=== PATIENT | female | born 1990 | race Caucasian/White ===

== ENCOUNTER 2020-06-07 19:26 | Emergency (ER) | payer BC ==
[2020-06-07] MEDS ORDERED: Alum Hydrox/Mag Hydrox/Simeth 15 ML, Lidocaine 2% 5 ML PO ONE ×2 (19:46)
[2020-06-07] MEDS ORDERED: Famotidine 20 MG Tab PO ONE (19:46)
[2020-06-07 20:05] LABS: BLOOD UREA NITROGEN,BUN 13 mg/dL (7.0-18.0); CARBON DIOXIDE,CO2 25.2 mmol/L (21.0-32.0); CHLORIDE,CL 102 mmol/L (98-107); GLUCOSE RANDOM 96 mg/dL (74-106); POTASSIUM,K 3.3 mmol/L (3.5-5.1); SODIUM,NA 138 mmol/L (136-145)
[2020-06-07] MEDS ORDERED: Potassium Chloride 10% 20 MEQ/15 ML Soln 30 ML UD Cup PO ONE (20:30)
--- NOTE | 2020-06-07 21:09 | CR ---
Indication: Chest pain. Technique: AP portable view of the chest. Comparison: None Findings: The heart is normal in size. The lungs are clear. No infiltrate, pleural effusion, or pneumothorax is identified. Impression: No acute cardiopulmonary process. Dictated by Sydnie Nicholson MD @ Jun 07 2020 9:07PM Signed by Dr. Sydnie Nicholson @ Jun 07 2020 9:09PM
--- NOTE | 2020-06-07 21:33 | EDM.PDOC ---
ED HPI GENERAL MEDICAL PROBLEM - General Chief Complaint: Chest Pain Stated Complaint: CHEST PAIN Time Seen by Provider: 06/07/20 19:30 - History of Present Illness INITIAL COMMENTS - FREE TEXT/NARRATIVE: CHIEF COMPLAINT(S): Chest pain HISTORY OF PRESENT ILLNESS: This is a 29-year-old woman without any significant past medical history who comes to the emergency department with a chief complaint of chest pain. The patient states that for approximately 2 days now she has been experiencing chest pain which she describes as cramping rated 5 out of 10 and intermittent located in the center of her chest. She states that she does feel some nausea with cramping but denies any diaphoresis, shortness of breath, vomiting. She denies any burning in her throat but states that she does feel some pain in her upper abdomen also. She states that she took Tums, Rolaids, and Pepto-Bismol thinking that it might be reflux but it did not seem to help. She states that this pain happens every 2 hours. She denies any aggravating or relieving factors. She states that she was in [place] when it got worse and then got better. She denies any Covid exposures denies any cough, history of CAD or CHF. She denies any history of DVT or PE. She denies any long distance travel or recent surgery. REVIEW OF SYSTEMS: Constitutional: Denies fever, chills. Eyes: Denies eye pain Ears, Nose, Mouth, & Throat: Denies earache Cardiovascular: Positive for chest pain Respiratory: Denies shortness of breath Gastrointestinal: Positive for nausea. Denies vomiting, diarrhea, hematochezia, hematemesis, bilious emesis Genitourinary: Denies hematuria Skin:Denies a rash MSK: Denies joint pain Neurological: Denies blurred vision, numbness, tingling, weakness Psychiatric: Denies depression PAST MEDICAL HISTORY: As per history of present illness and as reviewed below otherwise noncontributory. SURGICAL HISTORY: As per history of present illness and as reviewed below otherwise noncontributory. SOCIAL HISTORY: As per history of present illness and as reviewed below otherwise noncontributory. FAMILY HISTORY: As per history of present illness and as reviewed below otherwise noncontributory. EXAMINATION OF ORGAN SYSTEMS/BODY AREAS: Constitutional: Blood pressure is 146/99, heart rate 124, respiratory rate 20 with an oxygen saturation 96% on room air. Temperature 36.6 General: Anxious appearing woman otherwise no acute distress Psychiatric: Anxious appearing but cooperative Eyes: No scleral icterus or conjunctival erythema ENMT: Moist mucous membranes. No pharyngeal erythema Cardiovascular: Regular, rate, and rhythm. No gallops, murmurs, or rubs. Bilateral upper extremity pulses symmetric and intact. No peripheral edema. No JVD. Respiratory: Lungs clear to auscultation bilaterally. No wheezes, rales, or rhonchi. Gastrointestinal: Soft, non-tender, non-distended. Normoactive bowel sounds Genitourinary: No suprapubic tenderness Musculoskeletal: Normal range of motion. Skin: No lesions or abrasions. Neurological: Alert, GCS 15 MEDICAL DECISION MAKING AND COURSE IN THE ED WITH INTERPRETATION/REVIEW OF DIAGNOSTIC STUDIES: This is a 29-year-old woman without any significant past medical history who comes to the emergency department with subacute chest pain which is atypical. We did obtain an EKG which did not reveal any acute signs of ischemia. Will obtain a cardiac work-up. In addition we will obtain a D-dimer to evaluate for PE although the patient is low risk. We will only need 1 troponin given the duration of symptoms. Will obtain a chest x-ray. We will treat the patient symptomatically for possible reflux disease including GI cocktail and famotidine. I did perform a bedside cardiac ultrasound Bedside cardiac ultrasound Cardiac ultrasound reveals no evidence of pericardial effusion, ejection fraction appeared normal, no signs of right heart strain. No obvious wall motion abnormalities Time: 1929 Twelve-lead EKG interpreted by myself. Normal sinus rhythm at a rate of 94beats per minute. Normal axis. MT interval is 118ms. QRS duration is 93ms. ST segments are normal without elevations or depressions. No T wave inversions no Q waves present. Hypertrophy not noted. No prior EKGs in our system. Interpretation: Normal sinus rhythm Laboratory: CBC is unremarkable. D-dimer is negative. CMP reveals hypokalemia at 3.3 otherwise unremarkable. Troponin is negative. hCG is negative. Heart Score History: Slightly or Non-Suspicious (0) ECG: Normal (0) Age: <45 (0) Risk Factors: No known risk factors (0) Initial Troponin: </= normal limit (0) Total Score: 0 The radiological images were viewed by myself along with reading the report from the radiologist. Chest x-ray does not reveal any acute cardiopulmonary process. Time: 2111 Twelve-lead EKG interpreted by myself. Normal sinus rhythm at a rate of 81beats per minute. Normal axis. MT interval is 132ms. QRS duration is 83ms. ST segments are normal without elevations or depressions. No T wave inversions no Q waves present. Hypertrophy not noted. No prior EKGs in our system. Interpretation: Normal sinus rhythm After imaging and work-up I did discuss the results with the patient. I discus sed with her at this time that she is low risk for ACS. I encouraged the patient to use famotidine daily to evaluate if there is any symptomatic improvement. I would like her to follow-up with her primary care physician. She was amenable discharge and had no further questions DISPOSITION: The patient was discharged home in stable condition. The patient will follow up with primary care physician within 2-3 CONDITION: Fair PROCEDURES: Bedside cardiac ultrasound FINAL IMPRESSION(S)/DIAGNOSES: 1. Acute atypical chest pain Jason Rios M.D. Chest Pain Score (Numeric/FACES): 5 - Related Data Allergies Allergy/AdvReac Type Severity Reaction Status Date / Time Penicillins Allergy Other Verified 06/07/20 19:40 Sulfa (Sulfonamide Allergy Hives Verified 06/07/20 19:44 Antibiotics) Home Meds: Home Meds Famotidine [Pepcid] 40 mg PO DAILY #14 tablet 06/07/20 [Rx] norethindrone-e.estradioL-iron [June Fe 24 Tablet] 1 each PO DAILY 06/07/20 [History] Past Medical History - Infectious Disease History Infectious Disease History: Reports: Chicken Pox - Past Surgical History Musculoskeletal Surgical History: Reports: Other (See Below) Other Musculoskeletal Surgeries/Procedures:: left wrist surgery Social & Family History - Family History Family Medical History: No Pertinent Family History - Tobacco Use Tobacco Use Status *Q: Never Tobacco User - Recreational Drug Use Recreational Drug Use: No ED ROS GENERAL - Review of Systems Review Of Systems: See Below ED EXAM, GENERAL - Physical Exam Exam: See Below Course - Vital Signs Last Recorded V/S: Last Vital Signs Temp 36.3 C 06/07/20 21:51 Pulse 89 06/07/20 21:51 Resp 16 06/07/20 21:51 BP 120/79 06/07/20 21:51 Pulse Ox 97 06/07/20 21:51 - Orders/Labs/Meds Labs: Laboratory Tests 06/07/20 06/07/20 06/07/20 Range/Units 19:29 19:29 19:29 WBC 8.79 (4.0-11.0) K/uL RBC 4.64 (4.30-5.90) M/uL Hgb 14.4 (12.0-16.0) g/dL Hct 42.6 (36.0-46.0) % MCV 91.8 (80.0-98.0) fL MCH 31.0 (27.0-32.0) pg MCHC 33.8 (31.0-37.0) g/dL RDW Std Deviation 45.1 (28.0-62.0) fl RDW Coeff of Jfefrey 13 (11.0-15.0) % Plt Count 289 (150-400) K/uL MPV 11.40 (7.40-12.00) fL Neut % (Auto) 60.4 (48.0-80.0) % Lymph % (Auto) 27.5 (16.0-40.0) % Vance % (Auto) 10.2 (0.0-15.0) % Eos % (Auto) 1.7 (0.0-7.0) % Baso % (Auto) 0.2 (0.0-1.5) % Neut # (Auto) 5.3 (1.4-5.7) K/uL Lymph # (Auto) 2.4 (0.6-2.4) K/uL Vance # (Auto) 0.9 H (0.0-0.8) K/uL Eos # (Auto) 0.2 (0.0-0.7) K/uL Baso # (Auto) 0.0 (0.0-0.1) K/uL Nucleated RBC % 0.0 /100WBC Nucleated RBCs # 0 K/uL D-Dimer, Quantitative 0.42 (0.0-0.50) mg/L FEU Sodium 138 (136-145) mmol/L Potassium 3.3 L (3.5-5.1) mmol/L Chloride 102 (98-107) mmol/L Carbon Dioxide 25.2 (21.0-32.0) mmol/L BUN 13 (7.0-18.0) mg/dL Creatinine 0.9 (0.6-1.0) mg/dL Est Cr Clr Drug Dosing 85.86 mL/min Estimated GFR (MDRD) > 60.0 ml/min Glucose 96 (74-106) mg/dL Calcium 9.1 (8.5-10.1) mg/dL Magnesium 1.9 (1.8-2.4) mg/dL Total Bilirubin 0.3 (0.2-1.0) mg/dL AST 22 (15-37) IU/L ALT 36 (14-63) IU/L Alkaline Phosphatase 35 L (46-116) U/L Troponin I < 0.050 (0.000-0.056) ng/mL Total Protein 7.7 (6.4-8.2) g/dL Albumin 3.7 (3.4-5.0) g/dL Globulin 4.0 (2.6-4.0) g/dL Albumin/Globulin Ratio 0.9 (0.9-1.6) Urine HCG, Qual (NEGATIVE) 06/07/20 Range/Units 20:25 WBC (4.0-11.0) K/uL RBC (4.30-5.90) M/uL Hgb (12.0-16.0) g/dL Hct (36.0-46.0) % MCV (80.0-98.0) fL MCH (27.0-32.0) pg MCHC (31.0-37.0) g/dL RDW Std Deviation (28.0-62.0) fl RDW Coeff of Jeffrey (11.0-15.0) % Plt Count (150-400) K/uL MPV (7.40-12.00) fL Neut % (Auto) (48.0-80.0) % Lymph % (Auto) (16.0-40.0) % Vance % (Auto) (0.0-15.0) % Eos % (Auto) (0.0-7.0) % Baso % (Auto) (0.0-1.5) % Neut # (Auto) (1.4-5.7) K/uL Lymph # (Auto) (0.6-2.4) K/uL Vance # (Auto) (0.0-0.8) K/uL Eos # (Auto) (0.0-0.7) K/uL Baso # (Auto) (0.0-0.1) K/uL Nucleated RBC % /100WBC Nucleated RBCs # K/uL D-Dimer, Quantitative (0.0-0.50) mg/L FEU Sodium (136-145) mmol/L Potassium (3.5-5.1) mmol/L Chloride (98-107) mmol/L Carbon Dioxide (21.0-32.0) mmol/L BUN (7.0-18.0) mg/dL Creatinine (0.6-1.0) mg/dL Est Cr Clr Drug Dosing mL/min Estimated GFR (MDRD) ml/min Glucose (74-106) mg/dL Calcium (8.5-10.1) mg/dL Magnesium (1.8-2.4) mg/dL Total Bilirubin (0.2-1.0) mg/dL AST (15-37) IU/L ALT (14-63) IU/L Alkaline Phosphatase (46-116) U/L Troponin I (0.000-0.056) ng/mL Total Protein (6.4-8.2) g/dL Albumin (3.4-5.0) g/dL Globulin (2.6-4.0) g/dL Albumin/Globulin Ratio (0.9-1.6) Urine HCG, Qual NEGATIVE (NEGATIVE) Meds: Medications Discontinued Medications Generic Name Dose Route Start Last Admin Trade Name Freq PRN Reason Stop Dose Admin Al Hydroxide/Mg Hydroxide 15 0 ml 06/07/20 19:46 06/07/20 19:51 ml/ Lidocaine HCl 5 ml PO 06/07/20 19:47 1 each ONETIME ONE Administration Famotidine 20 mg 06/07/20 19:46 06/07/20 19:50 Pepcid PO 06/07/20 19:47 20 mg ONETIME ONE Administration Potassium Chloride 40 meq 06/07/20 20:30 06/07/20 20:56 Potassium Chloride PO 06/07/20 20:31 40 meq ONETIME ONE Administration Departure - Departure Time of Disposition: 21:31 Disposition: Home, Self-Care 01 Condition: Fair Clinical Impression: Atypical chest pain Acid reflux Qualifiers: Esophagitis presence: esophagitis presence not specified Qualified Code(s): K21.9 - Gastro-esophageal reflux disease without esophagitis - Discharge Information *PRESCRIPTION DRUG MONITORING PROGRAM REVIEWED*: No *COPY OF PRESCRIPTION DRUG MONITORING REPORT IN PATIENT OLIVIER: No Prescriptions: Famotidine [Pepcid] 40 mg PO DAILY #14 tablet Instructions: Nonspecific Chest Pain, Adult, [id number], Gastroesophageal Reflux Disease, Adult, [id number] Referrals: PCP,None [Primary Care Provider] - Forms: ED Department Discharge Additional Instructions: You were evaluated today on an emergent basis. At this time it is uncertain as to what is causing your chest pain however your work-up was normal other than low potassium which we did provide you. I do recommend that you use famotidine 40 mg at bedtime and Maalox as needed for symptomatic relief. This could be secondary to reflux disease or GERD. If you have any worsening symptoms such as worsening chest pain, shortness of breath, or passing out please return to the emergency department. I recommend that you follow-up with your primary care physician numbers are provided below. Please follow-up within 3 to 5 days. [facility] [address] [place] [address] [place] [address] The patient is informed of any results of their evaluation and diagnostic workup and all questions are answered. They are given discharge instructions and return precautions. The patient is stable for discharge. The patient states they understand and agree with the plan and that they will return if their symptoms get worse or if they have any new concerns. The following information is given to patients seen in the emergency department who are being discharged to home. This information is to outline your options for follow-up care. We provide all patients seen in our emergency department with a follow-up referral. The need for follow-up, as well as the timing and circumstances, are variable depending upon the specifics of your emergency department visit. If you don't have a primary care physician on staff, we will provide you with a referral. We always advise you to contact your personal physician following an emergency department visit to inform them of the circumstance of the visit and for follow-up with them and/or the need for any referrals to a consulting specialist. The emergency department will also refer you to a specialist when appropriate. This referral assures that you have the opportunity for follow-up care with a specialist. All of these measure are taken in an effort to provide you with optimal care, which includes your follow-up. Under all circumstances we always encourage you to contact your private physician who remains a resource for coordinating your care. When calling for follow-up care, please make the office aware that this follow-up is from your recent emergency room visit. If for any reason you are refused follow-up, please contact the [facility] Emergency Department at and asked to speak to the emergency department charge nurse. Sepsis Event Note (ED) - Evaluation Sepsis Screening Result: No Definite Risk
== END 2020-06-07 21:52 | disposition home or self-care (01) ==
LOC: MW.ED 19:26
DX: K21.9 Gastro-esophageal reflux disease without esophagitis (principal); Z88.0 Allergy status to penicillin; Z88.2 Allergy status to sulfonamides
CPT/HCPCS: 36415; 71045; 80053; 81025; 83735; 84484; 85025; 85379; 93005; 99285; A9270; 93010; 99284

== ENCOUNTER 2022-06-04 05:27 | Inpatient (IN) | payer OTHER ==
[2022-06-04] MEDS: Lactated Ringers 1,000 ML IV SCH ×3 (06:00→09:51)
[2022-06-04] MEDS ORDERED: ceFAZolin 2 GM in Premix Bag 1 BAG IV ONE (06:39)
[2022-06-04] MEDS ORDERED: Sodium Chloride 0.9% 10 ML Syringe FLUSH PRN (06:39)
[2022-06-04] MEDS ORDERED: Sodium Chloride 0.9% 2.5 ML Syringe FLUSH PRN (06:39)
[2022-06-04] MEDS ORDERED: Citric Acid/Sodium Citrate Solution 30 ML Cup PO ONE (06:39)
[2022-06-04] MEDS ORDERED: Sodium Chloride 0.9% 20 ML SDV IV PRN (06:39)
[2022-06-04] MEDS ORDERED: Oxytocin/0.9 % Sodium Chloride 30 UNIT/500 ML BAG IV SCH ×2 (06:45→09:30)
[2022-06-04] MEDS ORDERED: Ropivacaine 0.5% 5 MG/ML 30 ML SDV ONE ×2 (08:08→08:34)
[2022-06-04] MEDS ORDERED: Ketorolac 30 MG/ML SDV ONE (08:08)
[2022-06-04] MEDS ORDERED: Morphine PF 10 MG/10 ML SDV ONE (08:08)
[2022-06-04] MEDS ORDERED: ceFAZolin 1 GM Vial ONE (08:08)
[2022-06-04] MEDS ORDERED: Ondansetron 4 MG/2 ML SDV ONE (08:08)
[2022-06-04] MEDS ORDERED: fentaNYL 100 MCG/2 ML SDV ONE (08:08)
[2022-06-04] MEDS ORDERED: Dexamethasone 4 MG/ML 5 ML MDV ONE (08:08)
[2022-06-04] MEDS ORDERED: Oxytocin 10 Units/1 ML SDV ONE (08:08)
[2022-06-04] MEDS ORDERED: Misoprostol 200 MCG Tab RECTAL PRN (09:29)
[2022-06-04] MEDS ORDERED: Bisacodyl 10 MG Supp RECTAL PRN (09:29)
[2022-06-04] MEDS ORDERED: Ibuprofen 800 MG Tab PO PRN (09:29)
[2022-06-04] MEDS ORDERED: Oxytocin 10 Units/1 ML SDV IM PRN (09:29)
[2022-06-04] MEDS ORDERED: Lanolin 100% Cream 7 GM Tube TOP PRN (09:29)
[2022-06-04] MEDS ORDERED: Ondansetron 4 MG/2 ML SDV IVPUSH PRN ×3 (09:29→11:13)
[2022-06-04] MEDS ORDERED: Tranexamic Acid 1,000 MG in Sodium Chloride 0.9% 100 ML IV PRN (09:29)
[2022-06-04] MEDS ORDERED: diphenhydrAMINE 50 MG/ML SDV IVPUSH PRN ×2 (09:29→11:13)
[2022-06-04] MEDS ORDERED: Methylergonovine 0.2 MG/1 ML Amp IM PRN (09:29)
[2022-06-04] MEDS ORDERED: Lactated Ringers 1,000 ML IV SCH (09:30)
[2022-06-04] MEDS ORDERED: Morphine 2 MG/ML SYRINGE IVPUSH PRN (11:13)
[2022-06-04] MEDS ORDERED: Naloxone 0.4 MG/ML SDV IVPUSH PRN ×2 (11:13→12:55)
[2022-06-04] MEDS ORDERED: Acetaminophen/oxyCODONE 325-5 MG Tab PO PRN (11:13)
[2022-06-04] MEDS ORDERED: fentaNYL 100 MCG/2 ML SDV IVPUSH PRN ×2 (11:13)
[2022-06-04] MEDS ORDERED: HYDROmorphone 2 MG/ML Syringe IVPUSH PRN (11:13)
[2022-06-04] MEDS ORDERED: Albuterol 0.083% 2.5 MG/3 ML Neb Soln NEB PRN (11:13)
[2022-06-04] MEDS ORDERED: ePHEDrine 50 MG/ML SDV IVPUSH PRN ×2 (11:13)
[2022-06-04] MEDS ORDERED: Phenylephrine HCl In 0.9% NaCl 1 MG/10 ML Vial IVPUSH PRN (11:13)
[2022-06-04] MEDS ORDERED: Metoclopramide 10 MG/2 ML SDV IVPUSH PRN (11:13)
[2022-06-04] MEDS ORDERED: Ropivacaine HCl/PF 400 MG in Premix Bag 1 BAG EPIDUR SCH (11:15)
[2022-06-04] MEDS ORDERED: Phenylephrine HCl In 0.9% NaCl 1 MG/10 ML Vial IVPUSH SCH (11:15)
[2022-06-04] MEDS: Ketorolac 30 MG/ML SDV IVPUSH SCH ×3 (15:34→21:08)
[2022-06-04] MEDS: Docusate Sodium 100 MG Cap PO SCH (20:45)
[2022-06-05] MEDS: Ketorolac 30 MG/ML SDV IVPUSH SCH ×2 (03:59→10:20)
[2022-06-05] MEDS: Prenatal Multivitamin with Calcium/Folic Acid/Iron Tab PO SCH (10:21)
[2022-06-05] MEDS: Docusate Sodium 100 MG Cap PO SCH ×2 (10:22→21:12)
[2022-06-05] MEDS: Acetaminophen/oxyCODONE 325-5 MG Tab PO PRN ×3 (13:34→21:12)
[2022-06-06] MEDS: Acetaminophen/oxyCODONE 325-5 MG Tab PO PRN ×2 (04:43→09:02)
[2022-06-06] MEDS: Docusate Sodium 100 MG Cap PO SCH (09:01)
[2022-06-06] MEDS: Prenatal Multivitamin with Calcium/Folic Acid/Iron Tab PO SCH (09:02)
== END 2022-06-06 12:00 | disposition home or self-care (01) | DRG 788 ==
LOC: INTOOBSV 05:27 → MW.OB 05:27 → OBSVTOIN 09:29 → MW.OB 16:04
PROVIDERS: ADMIT Obstetrics & Gynecology; ATTEND Obstetrics & Gynecology
PROC: 10D00Z1 Extraction of Products of Conception, Low, Open Approach (ICD-10-PCS; principal; 2022-06-04)
DX: O44.43 Low lying placenta NOS or without hemorrhage, third trimester (principal); O36.63X0 Maternal care for excessive fetal growth, third trimester, not applicable or unspecified; O99.344 Other mental disorders complicating childbirth; F41.9 Anxiety disorder, unspecified; Z37.0 Single live birth; Z3A.39 39 weeks gestation of pregnancy; Z88.0 Allergy status to penicillin; Z88.2 Allergy status to sulfonamides
CPT/HCPCS: 36415; 59025; 82803; 85014; 85018; 85027; 86592; 86850; 86900; 86901; A9270-GY; J0690; J1100; J1200; J1885; J2274; J2405; J2590; J2765; J2795; J3010; J7120